=== PATIENT | female | born 1950 | race Caucasian/White ===

== ENCOUNTER 2017-08-06 22:42 | Emergency (ER) | payer MEDICARE, OTHER ==
[~2017-08-06] VITALS: Ht 165.1 cm; Wt 59.0 kg
[2017-08-06] MEDS ORDERED: LEVSOD50 PO (22:53)
[2017-08-06 23:30] LABS: BASOPHILS ABSOLUTE AUTO 0.04 K/mm3 (0.00-0.23); BASOPHILS PERCENT AUTO 1 % (0-2); EOSINOPHILS ABSOLUTE AUTO 0.17 K/mm3 (0.00-0.68); EOSINOPHILS PERCENT AUTO 2 % (0-6); Hematocrit 32.9 % (33.0-51.0); Hemoglobin 10.9 g/dL (11.5-16.0); IMMATURE GRAN ABSOLUTE AUTO 0.03 K/mm3 (0.00-0.10); IMMATURE GRAN PERCENT AUTO 0 % (0-1); LYMPHOCYTES ABSOLUTE AUTO 3.21 K/mm3 (0.84-5.20); LYMPHOCYTES PERCENT AUTO 38 % (21-46); MONOCYTES ABSOLUTE AUTO 0.61 K/mm3 (0.16-1.47); MONOCYTES PERCENT AUTO 7 % (4-13); Mean Corpuscular HGB 32.9 pg (26.0-34.0); Mean Corpuscular HGB Conc 33.1 g/dL (31.5-36.5); Mean Corpuscular Volume 99 fL (80-100); Mean Platelet Volume 8.9 fL (9.1-12.4); NEUTROPHILS PERCENT AUTO 51 % (41-73); Platelet Count 270 K/mm3 (150-400); RDW Coefficient Variation 15.1 % (11.7-14.2); RDW Standard Deviation 54.9 fL (35.1-46.3); Red Blood Cell Count 3.31 M/mm3 (3.80-5.20); White Blood Cell Count 8.36 K/mm3 (4.00-11.30)
[2017-08-06 23:46] LABS: Albumin, Blood 2.8 g/dL (3.4-5.0); Albumin/Globulin Ratio 0.4 (0.8-1.8); Bilirubin, Total 0.2 mg/dL (0.1-1.0); Bun/Creatinine Ratio 14.7 (12.0-20.0); Calcium, Blood 8.5 mg/dL (8.5-10.1); Creatinine, Blood 1.09 mg/dL (0.40-1.00); Globulin, Blood 6.8 g/dL (2.2-4.0); Potassium, Blood 3.9 mmol/L (3.5-5.5); Total Protein, Blood 9.6 g/dL (6.4-8.2)
[2017-08-07 00:44] LABS: Source, Urine Clean Catch
[2017-08-07 00:52] LABS: Bilirubin, Urine Neg (Neg); Blood, Urine 2+ (Neg); Glucose Qualitative, Urine Neg (Neg); Ketones, Urine Neg (Neg); Leukocyte Esterase, Urine Neg (Neg); Nitrite, Urine Neg (Neg); Protein, Urine Neg (Neg); Specific Gravity, Urine 1.015 (1.003-1.022); Urobilinogen, Urine NORM (Normal); pH, Urine 6.5 (5.0-8.0)
[2017-08-07 00:57] LABS: Appearance, Urine Clear (Clear); Color, Urine Yellow (P-Yellow)
[2017-08-07 00:58] LABS: Bacteria Few /hpf; Red Blood Cells, Urine 0-2 /hpf (0-2); Squamous Epithelial Cells Few /hpf (Few); White Blood Cells, Urine 0-2 /hpf (0-5); Yeast/Fungi Urine Rare /hpf
[2017-08-07] MEDS ORDERED: LIDO700A20 TOP (02:32)
== END 2017-08-07 02:30 | disposition home or self-care (01) ==
LOC: ER 22:42
PROVIDERS: Physician Assistant
DX: M54.5 Low back pain (principal); R10.9 Unspecified abdominal pain; E03.9 Hypothyroidism, unspecified; Z79.899 Other long term (current) drug therapy
CPT/HCPCS: 36415; 74176; 80053; 81001; 83690; 85025; 93005; 93010; 96360; 99284; J7030

== ENCOUNTER 2020-03-21 16:24 | Inpatient (IN) | payer MEDICARE, OTHER ==
[~2020-03-21] VITALS: Ht 165.1 cm; Wt 62.7 kg
[~2020-03-21 16:24] MED LIST: LIDO700A20 TOP
[2020-03-21 17:02] LABS: BASOPHILS ABSOLUTE AUTO 0.04 K/mm3 (0.00-0.23); BASOPHILS PERCENT AUTO 1 % (0-2); EOSINOPHILS ABSOLUTE AUTO 0.45 K/mm3 (0.00-0.68); EOSINOPHILS PERCENT AUTO 6 % (0-6); Hematocrit 36.7 % (33.0-51.0); Hemoglobin 11.9 g/dL (11.5-16.0); IMMATURE GRAN ABSOLUTE AUTO 0.07 K/mm3 (0.00-0.10); IMMATURE GRAN PERCENT AUTO 1 % (0-1); LYMPHOCYTES ABSOLUTE AUTO 1.13 K/mm3 (0.84-5.20); LYMPHOCYTES PERCENT AUTO 14 % (21-46); MONOCYTES ABSOLUTE AUTO 0.39 K/mm3 (0.16-1.47); MONOCYTES PERCENT AUTO 5 % (4-13); Mean Corpuscular HGB 32.6 pg (26.0-34.0); Mean Corpuscular HGB Conc 32.4 g/dL (31.5-36.5); Mean Corpuscular Volume 101 fL (80-100); Mean Platelet Volume 12.5 fL (9.1-12.4); NEUTROPHILS ABSOLUTE AUTO 6.14 K/mm3 (1.96-9.15); NEUTROPHILS PERCENT AUTO 75 % (41-73); Platelet Count 72 K/mm3 (150-400); RDW Coefficient Variation 16.1 % (11.7-14.2); RDW Standard Deviation 59.8 fL (35.1-46.3); Red Blood Cell Count 3.65 M/mm3 (3.80-5.20); White Blood Cell Count 8.22 K/mm3 (4.00-11.30)
[2020-03-21 17:15] LABS: Calcium, Ionized (POC) 1.02 mmol/L (1.10-1.46); Chloride (POC) 113 mmol/L (98-108); Creatinine (POC) 0.9 mg/dL (0.6-1.0); Glucose (ISTAT POC) 165 mg/dL (70-99); Hemoglobin (POC) 12.6 g/dL (12.0-16.0); Potassium (POC) 3.5 mmol/L (3.5-5.5); Sodium (POC) 141 mmol/L (135-148); Total CO2 (POC) 19 mmol/L (21-32)
[2020-03-21 17:19] LABS: Alanine Aminotransfer (ALT/SGP 34 U/L (12-78); Albumin, Blood 3.1 g/dL (3.4-5.0); Albumin/Globulin Ratio 0.8 (0.8-1.8); Alk Phos 77 U/L (50-136); Anion Gap 8 mmol/L (6-16); Aspartate Aminotrans (AST/SGOT 26 U/L (12-37); Bilirubin, Total 0.3 mg/dL (0.1-1.0); Blood Urea Nitrogen 12 mg/dL (8-24); Bun/Creatinine Ratio 15.5 (12.0-20.0); CO2, Blood 18 mmol/L (21-32); CPK Creatine Kinase 87 U/L (26-193); Calcium, Blood 7.4 mg/dL (8.5-10.1); Chloride, Blood 114 mmol/L (98-108); Creatinine, Blood 0.78 mg/dL (0.40-1.00); Globulin, Blood 3.9 g/dL (2.2-4.0); Glomerular Filtration Rate >60 (60-); Glucose, Blood 157 mg/dL (70-99); Potassium, Blood 3.6 mmol/L (3.5-5.5); Sodium, Blood 140 mmol/L (136-145)
[2020-03-21] MEDS ORDERED: ACYCLOVIR400 MG PO (17:44)
[2020-03-21] MEDS ORDERED: DEXA4 PO (17:45)
[2020-03-21] MEDS ORDERED: BUPROPION XL150 M1 PO (17:45)
[2020-03-21] MEDS ORDERED: Revlimid25 MG PO (17:45)
[2020-03-21] MEDS ORDERED: EUTHYROX50 MCG PO (17:46)
[2020-03-21 18:16] LABS: Prothrombin Time Results 10.7 Sec (9.7-11.5)
[2020-03-21 18:25] LABS: Source, Urine Voided
[2020-03-21 18:34] LABS: Appearance, Urine Clear (Clear); Bilirubin, Urine Neg (Neg); Blood, Urine Neg (Neg); Color, Urine Yellow (P-Yellow); Glucose Qualitative, Urine 2+ (Neg); Ketones, Urine 1+ (Neg); Leukocyte Esterase, Urine Neg (Neg); Nitrite, Urine Neg (Neg); Protein, Urine Neg (Neg); Urobilinogen, Urine NORM (Normal)
[2020-03-21 20:05] LABS: SARS-Cov-2 (COVID-19) PCR, MMC Negative (NEGATIVE)
[2020-03-21 20:06] LABS: Influenza A, PCR Negative (NEGATIVE); Influenza B, PCR Negative (NEGATIVE); Resp Syncytial Virus, PCR Negative (NEGATIVE)
[2020-03-22 02:12] LABS: Source, Urine Catheter
[2020-03-22 02:14] LABS: Bilirubin, Urine Neg (Neg); Blood, Urine 1+ (Neg); Glucose Qualitative, Urine 2+ (Neg); Ketones, Urine Neg (Neg); Leukocyte Esterase, Urine Neg (Neg); Nitrite, Urine Neg (Neg); Protein, Urine 1+ (Neg); Specific Gravity, Urine 1.005 (1.003-1.022); Urobilinogen, Urine NORM (Normal); pH, Urine 6.5 (5.0-8.0)
[2020-03-22 02:16] LABS: Appearance, Urine Clear (Clear); Color, Urine Yellow (P-Yellow)
[2020-03-22 02:20] LABS: Bacteria Not Seen /hpf; Squamous Epithelial Cells Not Seen /hpf (Few); White Blood Cells, Urine 0-2 /hpf (0-5)
[2020-03-22 03:18] LABS: BASOPHILS ABSOLUTE AUTO 0.02 K/mm3 (0.00-0.23); BASOPHILS PERCENT AUTO 0 % (0-2); EOSINOPHILS ABSOLUTE AUTO 0.01 K/mm3 (0.00-0.68); EOSINOPHILS PERCENT AUTO 0 % (0-6); Hematocrit 34.1 % (33.0-51.0); IMMATURE GRAN ABSOLUTE AUTO 0.09 K/mm3 (0.00-0.10); IMMATURE GRAN PERCENT AUTO 1 % (0-1); LYMPHOCYTES ABSOLUTE AUTO 0.58 K/mm3 (0.84-5.20); LYMPHOCYTES PERCENT AUTO 7 % (21-46); MONOCYTES ABSOLUTE AUTO 0.47 K/mm3 (0.16-1.47); MONOCYTES PERCENT AUTO 6 % (4-13); Mean Corpuscular HGB 32.6 pg (26.0-34.0); Mean Corpuscular HGB Conc 32.3 g/dL (31.5-36.5); Mean Corpuscular Volume 101 fL (80-100); Mean Platelet Volume 12.1 fL (9.1-12.4); NEUTROPHILS PERCENT AUTO 86 % (41-73); Platelet Count 69 K/mm3 (150-400); RDW Coefficient Variation 16.4 % (11.7-14.2); RDW Standard Deviation 61.5 fL (35.1-46.3); Red Blood Cell Count 3.37 M/mm3 (3.80-5.20); White Blood Cell Count 8.27 K/mm3 (4.00-11.30)
[2020-03-22 03:32] LABS: Anion Gap 8 mmol/L (6-16); Blood Urea Nitrogen 11 mg/dL (8-24); Bun/Creatinine Ratio 14.1 (12.0-20.0); CO2, Blood 21 mmol/L (21-32); Calcium, Blood 6.6 mg/dL (8.5-10.1); Chloride, Blood 115 mmol/L (98-108); Creatinine, Blood 0.78 mg/dL (0.40-1.00); Glomerular Filtration Rate >60 (60-); Glucose, Blood 109 mg/dL (70-99); Potassium, Blood 3.5 mmol/L (3.5-5.5); Sodium, Blood 144 mmol/L (136-145)
--- NOTE | 2020-03-22 06:31 | NUR ---
SHIFT SUMMARY PATIENT SLEPT WELL THRU NIGHT. NIGHT HAS PROGRESSED, PT. NOW HAS PALPABLE PULSES IN BILTARAL PEDAL, POSTERIOR TIBIAL SPOTS. PAIN IMPROVING, STILL SOME SHARP/SHOOTING EPISODES IN LEFT LEG BUT GOES AWAY QUICKLY. ASSESSMENT IS CHARTED. VSS. WILL CONTINUE TO MONITOR.
--- NOTE | 2020-03-22 09:42 | NUR ---
PT RESTING IN BED. HAS SHEATH IN PLACE TO R FEMORAL ARTERY WITH TPA AND HEPARIN RUNNING TO BOTH LEGS. PT IS LAYING FLAT WITHOUT FLEXION OF GROIN OR NECK. NO BLEEDING OR HEMATOMA AT SITE. FEMORAL PULSES PALPABLE. R PT PULSE FOUND WITH DOPPLER. L DORSALIS PULSE FOUND WITH DOPPLER. FEET ARE PINK AND WARM. PT HAS TINGLING BURNING PAIN TO FEET AND FEELS LIKE "THEY ARE WAKING UP". DILAUDID GIVEN FOR PAIN.
--- NOTE | 2020-03-22 12:15 | NUR ---
PT TAKEN TO THEATRICAL PERFORMER VIA BED ACCOMPANIED BY 2 RN'S.
--- NOTE | 2020-03-22 14:00 | NUR ---
PT BACK TO ICU 1 AFTER GRINDING ROOM INSPECTOR PROCEDURE. PT RETURNS WITH SHEATH IN PLACE STILL. DR. LACY UNABLE TO GET ENTIRE CLOT. HE WANTS TPA TO RUN FOR ANOTHER 5-6 HRS THEN HE WILL TAKE HER BACK TO THE GRINDING ROOM INSPECTOR TO TRY TO REMOVE MORE CLOT. SITE IS STABLE TO R FEMORAL ARTERY. DOPPLER PULSES TO R DORSALIS AND L DORSALIS. UNABLE TO FIND POSTERIOR TIBIAL PULSES. FEET ARE PINK AND WARM. PT IS NAUSEATED BUT DECLINES MEDS AT THIS TIME. NO SIGN OF DISTRESS. CALL LIGHT IN REACH.
--- NOTE | 2020-03-22 17:38 | NUR ---
PT TAKEN TO SENIOR SVP FOR 2ND INTERVENTION FOR THE DAY. PT DENIES NAUSEA AT THE MOMENT. NO SIGN OF DISTRESS. ACCOMPANIED BY 2 RN'S. TPA AND HEPARIN STILL RUNNING.
[2020-03-23 01:48] LABS: Hematocrit 29.8 % (33.0-51.0); Hemoglobin 9.6 g/dL (11.5-16.0); Mean Corpuscular HGB 32.8 pg (26.0-34.0); Mean Corpuscular HGB Conc 32.2 g/dL (31.5-36.5); Mean Corpuscular Volume 102 fL (80-100); Mean Platelet Volume 11.2 fL (9.1-12.4); Platelet Count 67 K/mm3 (150-400); RDW Coefficient Variation 16.8 % (11.7-14.2); RDW Standard Deviation 62.4 fL (35.1-46.3); Red Blood Cell Count 2.93 M/mm3 (3.80-5.20); White Blood Cell Count 6.77 K/mm3 (4.00-11.30)
[2020-03-23 02:04] LABS: Alanine Aminotransfer (ALT/SGP 30 U/L (12-78); Albumin, Blood 2.6 g/dL (3.4-5.0); Albumin/Globulin Ratio 0.8 (0.8-1.8); Alk Phos 61 U/L (50-136); Anion Gap 8 mmol/L (6-16); Aspartate Aminotrans (AST/SGOT 44 U/L (12-37); Bilirubin, Total 0.5 mg/dL (0.1-1.0); Blood Urea Nitrogen 12 mg/dL (8-24); Bun/Creatinine Ratio 13.5 (12.0-20.0); CO2, Blood 22 mmol/L (21-32); Chloride, Blood 118 mmol/L (98-108); Creatinine, Blood 0.89 mg/dL (0.40-1.00); Globulin, Blood 3.2 g/dL (2.2-4.0); Glomerular Filtration Rate >60 (60-); Glucose, Blood 81 mg/dL (70-99); Potassium, Blood 3.1 mmol/L (3.5-5.5); Sodium, Blood 148 mmol/L (136-145); Total Protein, Blood 5.8 g/dL (6.4-8.2)
[2020-03-23 02:05] LABS: BASOPHILS PERCENT MAN 0 % (0-2); EOSINOPHILS ABSOLUTE MAN 0.06 K/mm3 (0.00-0.68); EOSINOPHILS PERCENT MAN 1 % (0-6); LYMPHOCYTES ABSOLUTE MAN 0.81 K/mm3 (0.84-5.20); LYMPHOCYTES PERCENT MAN 12 % (21-46); MONOCYTES ABSOLUTE MAN 0.27 K/mm3 (0.16-1.47); MONOCYTES PERCENT MAN 4 % (4-13); NEUTROPHILS ABSOLUTE MAN 5.61 K/mm3 (1.96-9.15); SEG NEUTROPHILS PERCENT MAN 83 % (41-73); TOTAL CELLS COUNTED 100
--- NOTE | 2020-03-23 05:30 | NUR ---
SHIFT SUMMARY NO ACUTE CHANGES OVERNIGHT. DORSAL PEDAL PULSES STILL PALPABLE/CONFIRMED WITH DOPPLER, HOWEVER UNABLE TO DOPPLE POSTERIOR TIBIAL PULSES THRU NIGHT. TOLERATING LYING ON BACK DECENTLY. ASSESSMENT IS CHARTED. VSS. NO C/O PAIN. WILL CONTINUE TO MONITOR.
--- NOTE | 2020-03-23 08:10 | NUR ---
ASSESSMENT- PT AWAKE, ALERT, COOPERATIVE. ANXIOUS REGARDING BACK DISCOMFORT. TURNED FOR LINEN CHANGE KEEPING LEGS STRAIGHT. COLOR PALE, SKIN W/D. LUNGS CLEAR, NO SOB. NSR. BP STABLE. NO N/V. ABDOMEN FLAT. UO VIA WILSON. PIV X 2 INTACT WITH NS AT 100 CC/HR, POTASSIUM REPLACEMENT INFUSING. HEPARIN GTT AT 300 UNITS/HR PERIPHERALLY. TPA INFUSIONS X 2 TO BIFURCATED RIGHT FEMORAL CATH AT 0.5 MG/HR EACH. ABLE TO USE CALL LIGHT. REVIEWED PLAN OF CARE WITH PT, QUESTIONS ANSWERED
--- NOTE | 2020-03-23 09:13 | NUR ---
PT C/O LOWER BACK PAIN, NOTIFIED DR. ERVIN-FENTANYL GIVEN WITH IMPROVEMENT AND ATIVAN FOR ANXIETY. REPOSITIONED. DR. LACY HERE-PLANS FOR RETURN TO CATH TODAY.
--- NOTE | 2020-03-23 11:10 | NUR ---
REPORT TO MOLD BUILDER MARISABEL PADILLA. PT HAS BEEN SLEEPING WITHOUT COMPLAINTS. TO MOLD BUILDER. LINE INTACT
--- NOTE | 2020-03-23 13:35 | NUR ---
RETURN FROM PROCEDURE- PT AWAKENS EASILY TO NAME, ALERT, COOPERATIVE, DENIES PAIN AT REST. STATES TIRED OF BEDREST. REVIEWED PRECAUTIONS, STATES UNDERSTANDING. LUNGS CLEAR, NSR, BP STABLE. SOME PETECHIA NOTED LEFT ARM, BOTH FEET. IV NS AT 100 CC/HR. RIGHT FEMORAL SITE DI, TENDER, NO HEMATOMA. UO VIA WILSON CLEAR YELLOW. ABLE TO TAKE CLEAR LIQUIDS, NO N/V. REVERSE [place] POSITION.
--- NOTE | 2020-03-23 14:10 | NUR ---
CALLED DR. LACY WITH UPDATE. PT WITH STABLE VS.
--- NOTE | 2020-03-23 16:20 | NUR ---
VSS. NO S/S BLEEDING. NS AT 100 CC/HR, HEPARIN GTT INFUSING AT 13 UNITS/KG/HR ORDERED. PT AWAKE, ALERT, WANTS TO GET UP. ASSISTED TO STAND AT BEDSIDE, TOLERATED WELL. C/O LEFT LEG NUMBNESS, NEEDED ASSISTANCE TO STAND. STATES FEELS LEGS ARE VERY STIFF, BOTH LOWER LEGS WITH NUMBNESS BUT LEFT MORE THAN RIGHT. FEET BOTH WARM TO TOUCH, SENSATION INTACT, PULSES PRESENT-CAN PALPATE RIGHT DP.
--- NOTE | 2020-03-23 18:37 | NUR ---
VSS. ABLE TO EAT DINNER. DID HAVE ONE EPISODE OF LOOSE STOOL-STATES IT IS CHRONIC PROBLEM FOR HER AND REQUESTS IMMODIUM. SITE DI, PULSES UNCHANGED. STILL C/O NUMBNESS BOTH LEGS, WORSE ON LEFT. ABLE TO STAND WITH STANDBY ASSIST.
--- NOTE | 2020-03-23 19:00 | NUR ---
ASSUMED CARE NOTE: ASSUMED CARE OF PT AT 1900, RECEVIED REPORT FROM SANTIAOG PADILLA. PT IS ALERT AND ORIENTED TO SELF, PLACE, TIME. ABLE TO COMMUNICATE NEEDS AND ANSWER QUESTIONS APPROPRIATLY. PT IS ON RA WITH SPO2 ABOVE 90% PT IS NSR WITH HR IN THE 50-60'S PT DENIES ANY PAIN/NAUSEA AT THIS TIME. R FEMORAL SITE DRESSING C/D/I, NO HEMATOMA, BLEEDING OR TENDERNES NOTED. BT HEARD IN ALL FOUR QUADRANTS. WILSON PATENT DRAINING TO GRAVITY. BED AT LOWEST LEVEL, CALL LIGHT WITHIN REACH
--- NOTE | 2020-03-24 05:30 | NUR ---
SHIFT SUMMARY: NO SIGNIFICANT CHANGES. PT CONTINUES TO BE ALERT AND ORIENTEDX4. PT CONTINUES TO BE ON RA WITH SPO2 ABOVE 90% PT HAS BEEN IN SINUS RHYTHM HR IN THE 50-60'S. PT C/O BACK AND HEADACHE, 10/04, FENTANYL IV GIVEN THIS SHIFT WITH GOOD EFFECT. PT HAS BEEN SLEEPING FOR MOST OF THIS SHIFT, PT HAS BEEN REPOSITIONED SELF T/O. WILSON PATNET DRAINING TO GRAVITY, GOOD URINE OUTPUT. HEPARIN 17U/KG/MIN. WILL CONTINUE TO MONITOR PT UNTIL REPORT IS GIVEN TO ONCOMING SHIFT.
[2020-03-24 08:18] LABS: Hematocrit 27.7 % (33.0-51.0); Hemoglobin 8.9 g/dL (11.5-16.0); Mean Corpuscular HGB 32.6 pg (26.0-34.0); Mean Corpuscular HGB Conc 32.1 g/dL (31.5-36.5); Mean Corpuscular Volume 102 fL (80-100); Platelet Count 72 K/mm3 (150-400); RDW Coefficient Variation 16.4 % (11.7-14.2); RDW Standard Deviation 61.1 fL (35.1-46.3); Red Blood Cell Count 2.73 M/mm3 (3.80-5.20); White Blood Cell Count 6.81 K/mm3 (4.00-11.30)
[2020-03-24 08:27] LABS: Anion Gap 6 mmol/L (6-16); Blood Urea Nitrogen 9 mg/dL (8-24); Bun/Creatinine Ratio 11.3 (12.0-20.0); CO2, Blood 23 mmol/L (21-32); Chloride, Blood 116 mmol/L (98-108); Glomerular Filtration Rate >60 (60-); Glucose, Blood 91 mg/dL (70-99); Potassium, Blood 2.8 mmol/L (3.5-5.5); Sodium, Blood 145 mmol/L (136-145)
[2020-03-24 08:37] LABS: BASOPHILS PERCENT MAN 0 % (0-2); EOSINOPHILS ABSOLUTE MAN 0.06 K/mm3 (0.00-0.68); EOSINOPHILS PERCENT MAN 1 % (0-6); LYMPHOCYTES ABSOLUTE MAN 0.95 K/mm3 (0.84-5.20); LYMPHOCYTES PERCENT MAN 14 % (21-46); MONOCYTES ABSOLUTE MAN 0.88 K/mm3 (0.16-1.47); MONOCYTES PERCENT MAN 13 % (4-13); SEG NEUTROPHILS PERCENT MAN 72 % (41-73); TOTAL CELLS COUNTED 100
--- NOTE | 2020-03-24 09:43 | NUR ---
ASSUMED CARE REPORT FROM ODELL PADILLA AT 0700. PT A&OX 4. ANSWERS QUESTIONS APPROPRIATELY. DENIES NEEDS. LUNGS CLEAR. HEPARIN GTT AT 17 UNITS/KG/HR, NS AT 100 ML/HR. RIGHT GROIN ACCESS SITE TENDER TO PALPATION. NO HEMATOMA, ECCHYMOSIS NOTED. PULSES TO LOWER EXTREMITIES DOPPLERED. PALE. PT REPORTS NUMBNESS TO LEFT LEG STARTING IN KNEE. STATES SHE IS UNABLE TO USE LEG. USES WALKER TO AMB TO BATHROOM. PT STATES NUMBNESS AND INABILITY TO USE LEG NOT WORSE THAN YESTERDAY. AWAITING DR REIGNO BETTS. STATUS CHANGED TO [employer] s TELE. WILL CONTINUE TO MONITOR.
--- NOTE | 2020-03-24 17:30 | NUR ---
SHIFT SUMMARY PT STATUS CHANGED TO MED s TELE THIS SHIFT. STRONG DOPPLER PULSES BILATERALLY, ABLE TO PALPATE FAINT PULSES. WARM, CAP REFILL <2 SEC. SWELLING NOTED TO LEFT LEG. PT CONTINUES TO C/O NUMBNESS AND DIFFICULTIES WALKING D/T NUMBNESS TO LEFT LOWER LEG. PT ABLE TO STAND c WALKER AND TAKE SMALL STEPS. ABLE TO STAND AND BEAR WEIGHT TO LEFT LEG. DR LACY IN ROOM DURING THIS. HEPARIN GTT D/C'D AND XARELTO STARTED. PT ORDERED FOR TOMORROW. PT C/O INTERMITTANT PAIN TO RIGHT GROIN ACCESS SITE, TENDER. NO SWELLING OR ECCHYMOSIS NOTED. K REPLACED THIS SHIFT, IVF D/C'D. WILL CONTINUE TO MONITOR UNTIL REPORT TO ONCOMING NURSE.
[2020-03-25 03:44] LABS: Hematocrit 26.7 % (33.0-51.0); Hemoglobin 8.6 g/dL (11.5-16.0); Mean Corpuscular HGB 32.6 pg (26.0-34.0); Mean Corpuscular HGB Conc 32.2 g/dL (31.5-36.5); Mean Corpuscular Volume 101 fL (80-100); Mean Platelet Volume 10.8 fL (9.1-12.4); Platelet Count 99 K/mm3 (150-400); RDW Coefficient Variation 16.1 % (11.7-14.2); RDW Standard Deviation 59.6 fL (35.1-46.3); Red Blood Cell Count 2.64 M/mm3 (3.80-5.20); White Blood Cell Count 6.11 K/mm3 (4.00-11.30)
[2020-03-25 03:59] LABS: Anion Gap 7 mmol/L (6-16); Blood Urea Nitrogen 8 mg/dL (8-24); Bun/Creatinine Ratio 9.2 (12.0-20.0); CO2, Blood 22 mmol/L (21-32); Calcium, Blood 6.4 mg/dL (8.5-10.1); Chloride, Blood 115 mmol/L (98-108); Creatinine, Blood 0.87 mg/dL (0.40-1.00); Glomerular Filtration Rate >60 (60-); Glucose, Blood 91 mg/dL (70-99); Potassium, Blood 3.4 mmol/L (3.5-5.5); Sodium, Blood 144 mmol/L (136-145)
[2020-03-25 04:04] LABS: BAND PERCENT MAN 1 % (0-8); BASOPHILS PERCENT MAN 0 % (0-2); EOSINOPHILS ABSOLUTE MAN 0.42 K/mm3 (0.00-0.68); EOSINOPHILS PERCENT MAN 7 % (0-6); LYMPHOCYTES ABSOLUTE MAN 0.85 K/mm3 (0.84-5.20); LYMPHOCYTES PERCENT MAN 14 % (21-46); MONOCYTES ABSOLUTE MAN 0.91 K/mm3 (0.16-1.47); MONOCYTES PERCENT MAN 15 % (4-13); NEUTROPHILS ABSOLUTE MAN 3.91 K/mm3 (1.96-9.15); SEG NEUTROPHILS PERCENT MAN 63 % (41-73); TOTAL CELLS COUNTED 100
--- NOTE | 2020-03-25 06:32 | NUR ---
SHIFT SUMMARY PT REPORTED DIFFICULT SLEEPING AT BEGINNING OF SHIFT, CALL PLACED TO [facility] CAPACITOR REPAIRER, NEW ORDER FOR MELATONIN, PT SLEPT REMAININDER OF SHIFT. PAIN TO L LEG IMPROVED BUT NUMBNESS/TINGLING IN AREAS PERSIST. VSS, TEMP SLIGHTLY ELEVATED, TMAX 100.1. PT DENIES GI ISSUES. WILSON REMAINS IN PLACE WITH GOOD OUTPUT. PT REPOSITIONS SELF IN BED, CALL LIGHT WITHIN REACH, PT USING APPROPRIATELY.
--- NOTE | 2020-03-25 07:56 | NUR ---
PT SITTING UP IN BED EATING BREAKFAST. DENIES PAIN IN FEET TODAY. STILL HAS SOME NUMBNESS AND TINGLING THOUGH. PULSES PALPABLE, FEET WARM AND PINK, CAP REFILL LESS THAN 3 SECONDS. NO SIGN OF DISTRESS.
--- NOTE | 2020-03-25 09:10 | NUR ---
PT RESTING IN BED. WAITING ON PT TO EVAL TODAY AND HOPEFULLY PT WILL GET TO GO HOME. KATIE REMOVED THIS AM AND PT HAS GOTTEN UP TO BATHROOM WITH FWW WITHOUT DIFFICULTY. REPORT GIVEN TO SHANTE PADILLA WHO WILL ASSUME CARE.
--- NOTE | 2020-03-25 09:11 | NUR ---
ASSUMED CARE BEDSIDE REPORT RECIEVED FROM RANDY DRAPER. PT IS AWAKE, ALERT, AND ORIENTED. PT WITHOUT ANY COMPLAINTS AT THIS TIME. REVIEWED PLAN OF CARE. WILL CONTINUE TO MONITOR.
[2020-03-25] MEDS ORDERED: XARELTO20 MG PO ×2 (12:04→12:05)
--- NOTE | 2020-03-25 13:28 | NUR ---
DISCHARGE DISCHARGE MEDICATIONS, FOLLOW UPS, AND INSTRUCTIONS REVIEWED WITH PT. PT VERBALIZED UNDERSTANDING. MEDICATION PRESCRIPTIONS CALLED TO [facility] IN [place]. PT LEFT THE ROOM AT 1320 VIA WHEELCHAIR WITH ALL PT BELONGINGS.
[2020-09-16] MEDS ORDERED: Norco 5-325 Ta1 EACH PO (10:47)
[2020-09-16] MEDS ORDERED: Revlimid25 MG PO (10:48)
== END 2020-03-25 13:20 | disposition home or self-care (01) | DRG 271 ==
LOC: ER 16:24 → ICUW 22:05 → ICUE 22:05
PROVIDERS: Emergency Medicine; Radiology Diagnostic Radiology; Student in an Organized Health Care Education/Training Program; ADMIT Family Medicine
PROC: 04F Lower Arteries, Fragmentation (ICD-10-PCS; principal; 2020-03-21)
PROC: 3E05317 Introduction of Other Thrombolytic into Peripheral Artery, Percutaneous Approach (ICD-10-PCS; 2020-03-21)
PROC: 04F Lower Arteries, Fragmentation (ICD-10-PCS; 2020-03-22)
PROC: 04FM3Z0 Fragmentation of Right Popliteal Artery, Percutaneous Approach, Ultrasonic (ICD-10-PCS; 2020-03-22)
PROC: 047R3DZ Dilation of Right Posterior Tibial Artery with Intraluminal Device, Percutaneous Approach (ICD-10-PCS; 2020-03-22)
PROC: 047T3DZ Dilation of Right Peroneal Artery with Intraluminal Device, Percutaneous Approach (ICD-10-PCS; 2020-03-22)
PROC: 047P3DZ Dilation of Right Anterior Tibial Artery with Intraluminal Device, Percutaneous Approach (ICD-10-PCS; 2020-03-22)
PROC: 3E05317 Introduction of Other Thrombolytic into Peripheral Artery, Percutaneous Approach (ICD-10-PCS; 2020-03-22)
PROC: 04CT3ZZ Extirpation of Matter from Right Peroneal Artery, Percutaneous Approach (ICD-10-PCS; 2020-03-23)
PROC: 04CP3ZZ Extirpation of Matter from Right Anterior Tibial Artery, Percutaneous Approach (ICD-10-PCS; 2020-03-23)
PROC: 047Q3ZZ Dilation of Left Anterior Tibial Artery, Percutaneous Approach (ICD-10-PCS; 2020-03-23)
PROC: 047U3ZZ Dilation of Left Peroneal Artery, Percutaneous Approach (ICD-10-PCS; 2020-03-23)
PROC: 04FP3Z0 Fragmentation of Right Anterior Tibial Artery, Percutaneous Approach, Ultrasonic (ICD-10-PCS; 2020-03-23)
PROC: 04F Lower Arteries, Fragmentation (ICD-10-PCS; 2020-03-23)
PROC: 3E05317 Introduction of Other Thrombolytic into Peripheral Artery, Percutaneous Approach (ICD-10-PCS; 2020-03-23)
DX: I74.3 Embolism and thrombosis of arteries of the lower extremities (principal); C90.00 Multiple myeloma not having achieved remission; E03.9 Hypothyroidism, unspecified; F17.200 Nicotine dependence, unspecified, uncomplicated; Z20.822 Contact with and (suspected) exposure to COVID-19; D69.59 Other secondary thrombocytopenia; T45.1X5A Adverse effect of antineoplastic and immunosuppressive drugs, initial encounter; I10 Essential (primary) hypertension; E87.6 Hypokalemia
CPT/HCPCS: 0241U; 36415; 37184; 37185; 37211; 37213; 37214; 37224; 37228; 37232; 75625; 75635; 75716; 75774; 80047; 80048; 80053; 81001; 81003; 82550; 83605; 83690; 84484; 85007; 85014; 85025; 85027; 85384; 85610; 85730; 86850; 86900; 86901; 93005; 93010; 93925; 96374; 96375; 96376; 97116; 97162; 99152; 99153; 99285-25; A9270; C1725; C1751; C1757; C1760; C1769; C1887; C1894; J0610; J1170; J1644; J2060; J2250; J2405; J2550; J2997; J3010; J3480; J7030; J7040; J7050; Q9967

== ENCOUNTER 2020-04-04 16:01 | Emergency (ER) | payer MEDICARE, OTHER ==
[~2020-04-04] VITALS: Ht 165.1 cm; Wt 59.0 kg
[~2020-04-04 16:01] MED LIST changes: +ACYCLOVIR400 MG PO; +BUPROPION XL150 M1 PO; +DEXA4 PO; +EUTHYROX50 MCG PO; +Revlimid25 MG PO; +XARELTO20 MG PO
[2020-09-16] MEDS ORDERED: Norco 5-325 Ta1 EACH PO (10:47)
[2020-09-16] MEDS ORDERED: Revlimid25 MG PO (10:48)
== END 2020-04-04 20:00 | disposition left against medical advice (07) ==
LOC: ER 16:01
DX: Z00.00 Encounter for general adult medical examination without abnormal findings (principal); Z53.21 Procedure and treatment not carried out due to patient leaving prior to being seen by health care provider
CPT/HCPCS: 73620; 99284-25

== ENCOUNTER → 2020-07-19 | Outpatient (CLI) | payer MEDICARE, OTHER ==
[~2020-07-19] MED LIST changes: +Norco 5-325 Ta1 EACH PO
== END | disposition home or self-care (01) ==
LOC: LAB SHORT 09:47 → LAB 09:47
DX: D48.5 Neoplasm of uncertain behavior of skin (principal)
CPT/HCPCS: 88305

== ENCOUNTER 2020-09-23 09:50 | Day surgery (SDC) | payer MEDICARE, OTHER ==
[~2020-09-23] VITALS: Ht 165.1 cm; Wt 59.8 kg
[2020-09-23] MEDS ORDERED: POMALYST4 MG (10:43)
[2020-09-23] MEDS ORDERED: GABA300 (10:43)
[2020-09-23] MEDS ORDERED: XGEVA120 MG/1.1 (10:44)
[2020-09-23] MEDS ORDERED: KYPROLIS10 MG (10:44)
--- NOTE | 2020-09-23 13:41 | NUR ---
09/23/20 1341 HANANE MEMBRENO RECEIVED A ALL FROM [facility] IN IMAGING. STATES THAT DR. BANKS STATES MEDIPORT PLACEMENT LOOKS GOOD. [id number],RN
== END 2020-09-23 14:10 | disposition home or self-care (01) ==
LOC: ORSCSDS 09:50 → ORD 11:00 → ORSCSDS 14:10
PROVIDERS: Surgery
PROC: 0JH60WZ Insertion of Totally Implantable Vascular Access Device into Chest Subcutaneous Tissue and Fascia, Open Approach (ICD-10-PCS; principal; 2020-09-23 11:00)
DX: C90.00 Multiple myeloma not having achieved remission (principal); I10 Essential (primary) hypertension; F17.210 Nicotine dependence, cigarettes, uncomplicated; Z79.01 Long term (current) use of anticoagulants; Z79.899 Other long term (current) drug therapy
CPT/HCPCS: 71045; 77001; C1788; J0690; J1100; J1642; J2250; J2405; J2704; J3010; J7120

== ENCOUNTER 2020-10-25 22:49 | Emergency (ER) | payer MEDICARE, OTHER ==
[~2020-10-25] VITALS: Ht 167.6 cm; Wt 56.7 kg
[~2020-10-25 22:49] MED LIST changes: +GABA300; +KYPROLIS10 MG; +POMALYST4 MG; +XGEVA120 MG/1.1
[2020-10-25 23:41] LABS: BASOPHILS ABSOLUTE AUTO 0.02 K/mm3 (0.00-0.23); BASOPHILS PERCENT AUTO 0 % (0-2); EOSINOPHILS ABSOLUTE AUTO 0.11 K/mm3 (0.00-0.68); EOSINOPHILS PERCENT AUTO 2 % (0-6); Hematocrit 32.6 % (33.0-51.0); Hemoglobin 10.8 g/dL (11.5-16.0); IMMATURE GRAN ABSOLUTE AUTO 0.05 K/mm3 (0.00-0.10); IMMATURE GRAN PERCENT AUTO 1 % (0-1); LYMPHOCYTES ABSOLUTE AUTO 0.81 K/mm3 (0.84-5.20); LYMPHOCYTES PERCENT AUTO 14 % (21-46); MONOCYTES ABSOLUTE AUTO 0.73 K/mm3 (0.16-1.47); MONOCYTES PERCENT AUTO 13 % (4-13); Mean Corpuscular HGB 33.9 pg (26.0-34.0); Mean Corpuscular HGB Conc 33.1 g/dL (31.5-36.5); Mean Corpuscular Volume 102 fL (80-100); Mean Platelet Volume 9.2 fL (9.1-12.4); NEUTROPHILS ABSOLUTE AUTO 3.94 K/mm3 (1.96-9.15); NEUTROPHILS PERCENT AUTO 70 % (41-73); Platelet Count 166 K/mm3 (150-400); RDW Coefficient Variation 14.5 % (11.7-14.2); RDW Standard Deviation 53.8 fL (35.1-46.3); Red Blood Cell Count 3.19 M/mm3 (3.80-5.20); White Blood Cell Count 5.66 K/mm3 (4.00-11.30)
[2020-10-26 00:01] LABS: Albumin, Blood 2.9 g/dL (3.4-5.0); Albumin/Globulin Ratio 0.8 (0.8-1.8); Bilirubin, Total 0.3 mg/dL (0.1-1.0); Bun/Creatinine Ratio 10.1 (12.0-20.0); Calcium, Blood 7.8 mg/dL (8.5-10.1); Creatinine, Blood 1.29 mg/dL (0.40-1.00); Globulin, Blood 3.7 g/dL (2.2-4.0); Potassium, Blood 3.9 mmol/L (3.5-5.5); Total Protein, Blood 6.6 g/dL (6.4-8.2)
[2020-10-26 00:17] LABS: SARS-Cov-2 (COVID-19) PCR, MMC NEGATIVE (NEGATIVE)
[2020-10-26 00:17] LABS: Source, Urine Clean Catch
[2020-10-26 00:24] LABS: Appearance, Urine Hazy (Clear); Bilirubin, Urine Neg (Neg); Blood, Urine 4+ (Neg); Color, Urine Yellow (P-Yellow); Glucose Qualitative, Urine Neg (Neg); Ketones, Urine Neg (Neg); Leukocyte Esterase, Urine 3+ (Neg); Nitrite, Urine Pos (Neg); Protein, Urine 2+ (Neg); Urobilinogen, Urine NORM (Normal)
[2020-10-26 00:31] LABS: White Blood Cells, Urine TNTC /hpf (0-5)
[2020-10-26 00:32] LABS: Bacteria Many /hpf; Red Blood Cells, Urine 0-2 /hpf (0-2); Squamous Epithelial Cells Few /hpf (Few)
[2020-10-26 01:07] LABS: Phosphorus, Blood 1.8 mg/dL (2.5-4.9); Uric Acid, Blood 5.6 mg/dL (2.6-6.0)
[2020-10-26] MEDS ORDERED: ONDA4 PO (02:21)
[2020-10-26] MEDS ORDERED: SULTRIDS PO (02:21)
== END 2020-10-26 02:47 | disposition home or self-care (01) ==
LOC: ER 22:49
PROVIDERS: Physician Assistant
DX: N12 Tubulo-interstitial nephritis, not specified as acute or chronic (principal); N17.9 Acute kidney failure, unspecified; C90.00 Multiple myeloma not having achieved remission; E03.9 Hypothyroidism, unspecified; Z20.822 Contact with and (suspected) exposure to COVID-19; Z88.5 Allergy status to narcotic agent; Z79.899 Other long term (current) drug therapy; Z87.891 Personal history of nicotine dependence
CPT/HCPCS: 36415; 71045; 80053; 81001; 83605; 84100; 84145; 84550; 85025; 87077; 87086; 87186; 93005; 93010; 96365; 99284-25; J2543; J7030; U0004

== ENCOUNTER → 2020-11-02 | Outpatient (CLI) | payer MEDICARE, OTHER ==
[~2020-11-02] MED LIST changes: +ONDA4 PO; +SULTRIDS PO
[2020-11-02 14:37] LABS: Hematocrit 28.5 % (33.0-51.0); Hemoglobin 9.3 g/dL (11.5-16.0); Mean Corpuscular HGB 34.3 pg (26.0-34.0); Mean Corpuscular HGB Conc 32.6 g/dL (31.5-36.5); Mean Corpuscular Volume 105 fL (80-100); Mean Platelet Volume 9.6 fL (9.1-12.4); Platelet Count 199 K/mm3 (150-400); RDW Coefficient Variation 15.3 % (11.7-14.2); RDW Standard Deviation 58.1 fL (35.1-46.3); Red Blood Cell Count 2.71 M/mm3 (3.80-5.20); White Blood Cell Count 3.99 K/mm3 (4.00-11.30)
[2020-11-02 14:59] LABS: BAND PERCENT MAN 1 % (0-8); BASOPHILS ABSOLUTE MAN 0.07 K/mm3 (0.00-0.23); BASOPHILS PERCENT MAN 2 % (0-2); EOSINOPHILS ABSOLUTE MAN 0.39 K/mm3 (0.00-0.68); EOSINOPHILS PERCENT MAN 10 % (0-6); LYMPHOCYTES % ATYPICAL MANUAL 1 % (0-0); LYMPHOCYTES ABSOLUTE MAN 1.47 K/mm3 (0.84-5.20); LYMPHOCYTES PERCENT MAN 36 % (21-46); MONOCYTES ABSOLUTE MAN 0.07 K/mm3 (0.16-1.47); MONOCYTES PERCENT MAN 2 % (4-13); NEUTROPHILS ABSOLUTE MAN 1.95 K/mm3 (1.96-9.15); SEG NEUTROPHILS PERCENT MAN 48 % (41-73); TOTAL CELLS COUNTED 100
[2020-11-02 15:02] LABS: Albumin, Blood 2.4 g/dL (3.4-5.0); Albumin/Globulin Ratio 0.8 (0.8-1.8); Bilirubin, Total 0.2 mg/dL (0.1-1.0); Bun/Creatinine Ratio 13.5 (12.0-20.0); Calcium, Blood 7.4 mg/dL (8.5-10.1); Creatinine, Blood 1.41 mg/dL (0.40-1.00); Globulin, Blood 3.2 g/dL (2.2-4.0); Potassium, Blood 4.5 mmol/L (3.5-5.5); Total Protein, Blood 5.6 g/dL (6.4-8.2)
[2020-11-04 13:13] LABS: BETA-2 MICROGLOBULIN, SERUM 3.1 mg/L (0.6-2.4)
[2020-11-04 17:07] LABS: A/G RATIO 1.2 (0.7-1.7); ALBUMIN 2.7 g/dL (2.9-4.4); ALPHA-1-GLOBULIN 0.2 g/dL (0.0-0.4); ALPHA-2-GLOBULIN 0.7 g/dL (0.4-1.0); BETA GLOBULIN 0.8 g/dL (0.7-1.3); GAMMA GLOBULIN 0.7 g/dL (0.4-1.8); GLOBULIN, TOTAL 2.4 g/dL (2.2-3.9); IMMUNOGLOBULIN A, QN, SERUM 11 mg/dL (64-422); IMMUNOGLOBULIN G, QN, SERUM 677 mg/dL (586-1602); IMMUNOGLOBULIN M, QN, SERUM 16 mg/dL (26-217); M-SPIKE 0.5 g/dL (Not Observed); PROTEIN, TOTAL, SERUM 5.1 g/dL (6.0-8.5)
== END | disposition home or self-care (01) ==
LOC: LAB SHORT 14:19
PROVIDERS: Internal Medicine Hematology & Oncology
DX: C90.00 Multiple myeloma not having achieved remission (principal)
CPT/HCPCS: 80053; 85025

== ENCOUNTER → 2021-03-08 | Outpatient (CLI) | payer MEDICARE, OTHER ==
[2021-03-08 19:35] LABS: Protein, Urine Quantitative 5.2 mg/dL (0.0-11.9)
== END | disposition home or self-care (01) ==
LOC: LAB SHORT 16:00 → LAB 16:00
PROVIDERS: Internal Medicine Hematology & Oncology
DX: C90.00 Multiple myeloma not having achieved remission (principal)
CPT/HCPCS: 84156

== ENCOUNTER → 2021-08-26 | Outpatient (CLI) | payer MEDICARE, OTHER ==
[~2021-08-26] MED LIST changes: +DRON2.5 PO; +FLUC200 PO; +Flonase 0.05% N16 GM; -GABA300; +GABA300 PO; +LOPERAMIDE PO; +LORA.5 PO; +OMEP20ER PO; +POTA20PAC PO; +PRED20 PO; +PROMETHAZINE12.5 M1 PT
[2021-08-26 14:34] LABS: BASOPHILS ABSOLUTE AUTO 0.02 K/mm3 (0.00-0.23); BASOPHILS PERCENT AUTO 0 % (0-2); EOSINOPHILS ABSOLUTE AUTO 0.16 K/mm3 (0.00-0.68); EOSINOPHILS PERCENT AUTO 3 % (0-6); Hematocrit 36.2 % (33.0-51.0); Hemoglobin 11.9 g/dL (11.5-16.0); IMMATURE GRAN ABSOLUTE AUTO 0.01 K/mm3 (0.00-0.10); IMMATURE GRAN PERCENT AUTO 0 % (0-1); LYMPHOCYTES ABSOLUTE AUTO 0.82 K/mm3 (0.84-5.20); LYMPHOCYTES PERCENT AUTO 17 % (21-46); MONOCYTES ABSOLUTE AUTO 0.54 K/mm3 (0.16-1.47); MONOCYTES PERCENT AUTO 11 % (4-13); Mean Corpuscular HGB 35.7 pg (26.0-34.0); Mean Corpuscular HGB Conc 32.9 g/dL (31.5-36.5); Mean Corpuscular Volume 109 fL (80-100); Mean Platelet Volume 8.9 fL (9.1-12.4); NEUTROPHILS ABSOLUTE AUTO 3.28 K/mm3 (1.96-9.15); NEUTROPHILS PERCENT AUTO 68 % (41-73); Platelet Count 172 K/mm3 (150-400); RDW Coefficient Variation 14.2 % (11.7-14.2); RDW Standard Deviation 53.3 fL (35.1-46.3); Red Blood Cell Count 3.33 M/mm3 (3.80-5.20); White Blood Cell Count 4.83 K/mm3 (4.00-11.30)
[2021-08-26 14:54] LABS: Albumin, Blood 3.5 g/dL (3.4-5.0); Albumin/Globulin Ratio 1.2 (0.8-1.8); Bilirubin, Total 0.4 mg/dL (0.1-1.0); Calcium, Blood 8.4 mg/dL (8.5-10.1); Creatinine, Blood 1.09 mg/dL (0.40-1.00); Potassium, Blood 3.9 mmol/L (3.5-5.5); Total Protein, Blood 6.5 g/dL (6.4-8.2)
== END | disposition home or self-care (01) ==
LOC: LAB SHORT 14:31 → LAB 14:31
PROVIDERS: General Practice
DX: Z09 Encounter for follow-up examination after completed treatment for conditions other than malignant neoplasm (principal); Z94.84 Stem cells transplant status
CPT/HCPCS: 80053; 85025

== ENCOUNTER → 2022-04-20 | Outpatient (CLI) | payer MEDICARE | END | disposition home or self-care (01) | LOC: LAB SHORT 15:39 → LAB 15:39 | DX: R30.0 Dysuria (principal); M54.50 Low back pain, unspecified | CPT/HCPCS: 87086 ==

== ENCOUNTER 2022-06-19 10:50 | Observation (INO) | payer MEDICARE, OTHER ==
[~2022-06-19 10:50] MED LIST changes: +AMOCLA600S PO; +COMBIVENT RESPIM4 G1 INH; +GUAI600T33 PO; +Norco 10-325 T1 EACH PO; +PEPCID20 MG PO; +VISBIOME 112.51 EACH PO
[2022-06-19 11:22] LABS: BASOPHILS ABSOLUTE AUTO 0.05 K/mm3 (0.00-0.23); BASOPHILS PERCENT AUTO 1 % (0-2); EOSINOPHILS ABSOLUTE AUTO 0.16 K/mm3 (0.00-0.68); EOSINOPHILS PERCENT AUTO 2 % (0-6); Hematocrit 21.5 % (33.0-51.0); Hemoglobin 6.8 g/dL (11.5-16.0); IMMATURE GRAN ABSOLUTE AUTO 0.12 K/mm3 (0.00-0.10); IMMATURE GRAN PERCENT AUTO 1 % (0-1); LYMPHOCYTES ABSOLUTE AUTO 0.94 K/mm3 (0.84-5.20); LYMPHOCYTES PERCENT AUTO 9 % (21-46); MONOCYTES ABSOLUTE AUTO 0.58 K/mm3 (0.16-1.47); MONOCYTES PERCENT AUTO 6 % (4-13); Mean Corpuscular HGB 32.4 pg (26.0-34.0); Mean Corpuscular HGB Conc 31.6 g/dL (31.5-36.5); Mean Corpuscular Volume 102 fL (80-100); Mean Platelet Volume 10.6 fL (9.1-12.4); NEUTROPHILS ABSOLUTE AUTO 8.35 K/mm3 (1.96-9.15); NEUTROPHILS PERCENT AUTO 82 % (41-73); RDW Coefficient Variation 18.9 % (11.7-14.2); RDW Standard Deviation 68.7 fL (35.1-46.3)
[2022-06-19] MEDS ORDERED: FENTANYL1 EA20 TD (11:33)
[2022-06-19] MEDS ORDERED: Phenergan25 M1 PO (11:34)
[2022-06-19] MEDS ORDERED: MEGE40T PO (11:34)
[2022-06-19] MEDS ORDERED: HYDROCODONE-AC1 EAC7 PO (11:34)
[2022-06-19 11:39] LABS: Albumin, Blood 2.1 g/dL (3.4-5.0); Albumin/Globulin Ratio 0.7 (0.8-1.8); Bilirubin, Total 0.3 mg/dL (0.1-1.0); Bun/Creatinine Ratio 22.8 (12.0-20.0); Calcium, Blood 7.9 mg/dL (8.5-10.1); Creatinine, Blood 1.01 mg/dL (0.40-1.00); Globulin, Blood 3.1 g/dL (2.2-4.0); International Normalized Ratio 1.03; Prothrombin Time Results 10.8 Sec (9.7-11.5); Total Protein, Blood 5.2 g/dL (6.4-8.2)
[2022-06-19 11:52] LABS: Platelet Count 83 K/mm3 (150-400)
[2022-06-19 12:00] LABS: Source, Urine Straight Cath
[2022-06-19 12:03] LABS: Appearance, Urine Clear (Clear); Bilirubin, Urine Neg (Neg); Blood, Urine Neg (Neg); Color, Urine Yellow (P-Yellow); Glucose Qualitative, Urine Neg (Neg); Ketones, Urine Neg (Neg); Leukocyte Esterase, Urine Neg (Neg); Nitrite, Urine Neg (Neg); Protein, Urine 1+ (Neg); Specific Gravity, Urine 1.015 (1.003-1.022); Urobilinogen, Urine NORM (Normal); pH, Urine 6.5 (5.0-8.0)
[2022-06-19] MEDS ORDERED: FAMO20 PO (14:53)
[2022-06-19 15:39] VITALS: BP 116/77
[2022-06-19 19:11] LABS: Source, Urine Foley catheter
[2022-06-19 19:16] LABS: Bilirubin, Urine Neg (Neg); Blood, Urine Neg (Neg); Glucose Qualitative, Urine Neg (Neg); Ketones, Urine Neg (Neg); Leukocyte Esterase, Urine Neg (Neg); Nitrite, Urine Neg (Neg); Protein, Urine 1+ (Neg); Specific Gravity, Urine 1.015 (1.003-1.022); Urobilinogen, Urine NORM (Normal)
[2022-06-19 19:24] LABS: Appearance, Urine Clear (Clear); Color, Urine Yellow (P-Yellow)
[2022-06-20] MEDS ORDERED: PANT40 PO (09:25)
== END 2022-06-20 10:47 | disposition hospice, home (50) ==
LOC: ER 10:50 → MEDS 10:51 → ER 13:27 → MEDS 15:29
PROVIDERS: Emergency Medicine; ADMIT Internal Medicine
DX: S06.340A Traumatic hemorrhage of right cerebrum without loss of consciousness, initial encounter (principal); W18.30XA Fall on same level, unspecified, initial encounter; D64.9 Anemia, unspecified; K92.1 Melena; J94.2 Hemothorax; C34.92 Malignant neoplasm of unspecified part of left bronchus or lung; R64 Cachexia; Z51.5 Encounter for palliative care; Z66 Do not resuscitate; E03.9 Hypothyroidism, unspecified; N18.30 Chronic kidney disease, stage 3 unspecified; Z86.718 Personal history of other venous thrombosis and embolism; Z79.890 Hormone replacement therapy; Z79.01 Long term (current) use of anticoagulants; Z79.899 Other long term (current) drug therapy
CPT/HCPCS: 36430; 51702; 70450; 71045; 80053; 85025; 85610; 85730; 86850; 86900; 86901; 86923; 93005; 93010; 96374; 96375; 96376; 99285-25; A9270; C9113; G0378; J2060; J7030; P9016; P9612